=== PATIENT | female | born 1980 ===

== ENCOUNTER 2017-08-24 20:44 | Emergency (ER) | payer SELFPAY ==
[~2017-08-24] VITALS: Ht 157.5 cm; Wt 60.0 kg
[2017-08-24 21:05] VITALS: BP 120/82; PULSE 101; RESP 22; TEMP 98.6; O2SAT 100
== END 2017-08-24 22:22 | disposition left against medical advice (07) ==
LOC: NED 20:44
DX: Z03.89 Encounter for observation for other suspected diseases and conditions ruled out (principal)
CPT/HCPCS: 99281